=== PATIENT | female | born 1965 | race Caucasian/White ===

== ENCOUNTER → 2018-01-09 | Outpatient (CLI) | payer OTHER | END | disposition home or self-care (01) | LOC: LABWHC1 10:25 | PROVIDERS: ATTEND Family Medicine | DX: R19.7 Diarrhea, unspecified (principal) | CPT/HCPCS: 87045; 87046; 87324; 87328; 87329 ==

== ENCOUNTER → 2018-02-07 | Outpatient (CLI) | payer OTHER ==
--- NOTE | 2018-02-11 12:13 | MM ---
Reason for exam: screening (asymptomatic). Last mammogram was performed 2 years and 10 months ago. History: Patient is postmenopausal. Pre-pectoral saline implants in both breasts, 2000. MG Screening Mammo Implant/CAD Bilateral CC, MLO, and ID view(s) were taken. Prior study comparison: April 07, 2015, bilateral MG diag mamm implants JEN w CAD. There are scattered fibroglandular densities. Bilateral prepectoral saline implants are present. There is a new left lower inner quadrant focal asymmetry. ASSESSMENT: Incomplete: need additional imaging evaluation, BI-RAD 0 RECOMMENDATION: Special view mammogram of the left breast.
== END | disposition home or self-care (01) ==
LOC: RADMAMWWP 09:43
PROVIDERS: ATTEND Family Medicine
DX: Z12.31 Encounter for screening mammogram for malignant neoplasm of breast (principal)
CPT/HCPCS: 77067

== ENCOUNTER → 2018-02-14 | Outpatient (CLI) | payer OTHER ==
--- NOTE | 2018-02-18 10:43 | MM ---
Reason for exam: additional evaluation requested from abnormal screening. Last mammogram was performed less than 1 month ago. History: Patient is postmenopausal. Pre-pectoral saline implants in both breasts, 2000. Physical Findings: Nurse did not find any significant physical abnormalities on exam. MG Work Up Sven W/Imp W/CAD L Spot compression CC, spot compression MLO, LM, and ID view(s) were taken of the left breast. Prior study comparison: February 07, 2018, bilateral MG screening mammo implant/CAD. April 07, 2015, bilateral MG diag mamm implants JEN w CAD. The breast tissue is heterogeneously dense. This may lower the sensitivity of mammography. There is a 3 mm mass that persist in the lower inner quadrant of the left breast approximately 3 cm from the nipple. These results were verbally communicated with the patient and result sheet given to the patient on 02/14/18. ASSESSMENT: Incomplete: need additional imaging evaluation, BI-RAD 0 RECOMMENDATION: Ultrasound of the left breast.
== END | disposition home or self-care (01) ==
LOC: RADMAMWWP 12:03
PROVIDERS: ATTEND Family Medicine
DX: R92.8 Other abnormal and inconclusive findings on diagnostic imaging of breast (principal)
CPT/HCPCS: 77066

== ENCOUNTER → 2018-02-28 | Day surgery (SDC) | payer OTHER ==
[2018-02-28 11:06] VITALS: PULSE 90; BMI 29.5
[2018-02-28 15:40] VITALS: BP 134/67; RESP 16; TEMP 98
--- NOTE | 2018-02-28 15:40 | USB ---
EXAMINATION TYPE: US biopsy breast VAD LT, MG diagnostic mammo LT wo CAD DATE OF EXAM: 02/28/2018 CLINICAL HISTORY: 53-year-old female with abnormal mammogram and ultrasound left breast R92.8 Abnormal Mammo. TECHNIQUE: Ultrasound guided core biopsy of the left breast. COMPARISON: 02/14/2018 FINDINGS: The procedure of ultrasound guided core biopsy was explained to the patient. Benefits, alternatives, and risks were discussed. An informed consent was then obtained. The patient was placed in supine positioning for imaging and for the procedure. The overlying skin was prepped and draped in usual sterile fashion. Lidocaine buffered with bicarbonate was used as anesthetic into the skin and subcutaneous tissue up to area of concern in the 6:00 left breast. Here was taken given the patient's underlying rest implant. Anesthetic injection was used to lift the lesion away from the implant. Under ultrasound guidance, 13-gauge vacuum-assisted mammotome Elite biopsy gun device was used to obtain 3 core samples. The entire lesion appeared to be sampled with the multiple specimens. Following this, a coil clip was left in lesion. The patient tolerated the procedure well without any immediate complication. The patient was kept in the radiology department for short stay after the procedure and then discharged home in stable condition. Postprocedure mammogram shows clip at the site of mammographic abnormality. IMPRESSION: Successful, uncomplicated ultrasound guided core biopsy of area of concern in the 6:00 left breast which corresponds to the mammographic abnormality, full pathology results to follow. 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 See Surgical Pathology Cancer Case Summary. Recommendation Surgical consult of the left breast. (appropriate therapy and follow up) KUMAR
== END ==
LOC: RADUSWWP 10:20
PROVIDERS: ATTEND Family Medicine
DX: D05.12 Intraductal carcinoma in situ of left breast (principal); Z88.0 Allergy status to penicillin
CPT/HCPCS: 77065; 19083; A4648; 88305

== ENCOUNTER → 2019-02-09 | Outpatient (CLI) | payer OTHER ==
--- NOTE | 2019-02-09 11:09 | MM ---
Reason for exam: additional evaluation requested from prior study. Last mammogram was performed 11 months ago. History: Patient is postmenopausal and has history of breast cancer at age 53. Malignant US biopsy breast VAD LT of the left breast, February 28, 2018. Pre-pectoral saline implants in both breasts, 1999. Lumpectomy. Radiation therapy. Taking antineoplastic beginning at age 53. Physical Findings: Nurse did not find any significant physical abnormalities on exam. MG Diag Mamm Implants JEN w CAD Bilateral CC and MLO view(s) were taken. Prior study comparison: February 28, 2018, left breast MG diagnostic mammo LT wo CAD. February 14, 2018, left breast MG work up koki w/imp w/CAD L. There are scattered fibroglandular densities. Bilateral implants are intact. No significant new findings when compared with previous films. These results were verbally communicated with the patient and result sheet given to the patient on 02/09/19. ASSESSMENT: Benign, BI-RAD 2 RECOMMENDATION: Routine screening mammogram of both breasts in 1 year.
== END | disposition home or self-care (01) ==
LOC: RADMAMWWP 09:13
PROVIDERS: ATTEND Radiology Radiation Oncology
DX: C50.512 Malignant neoplasm of lower-outer quadrant of left female breast (principal); Z17.0 Estrogen receptor positive status [ER+]; Z92.3 Personal history of irradiation
CPT/HCPCS: 77066

== ENCOUNTER 2019-07-14 08:01 | Observation (INO) | payer OTHER ==
[2019-07-14] MEDS ORDERED: MORPHINE SULFATE 2 MG/ML SYRINGE IM STA (08:29)
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
[2019-07-14] MEDS ORDERED: HYDROmorphone 0.5 MG/0.5 ML SYRINGE IVP STA (10:34)
[2019-07-14] MEDS ORDERED: LORazepam 2 MG/ML INJ IV STA (10:35)
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
--- NOTE | 2019-07-14 13:17 | XR ---
EXAMINATION TYPE: XR shoulder complete RT DATE OF EXAM: 07/14/2019 CLINICAL HISTORY: pain TECHNIQUE: Three views of the right shoulder are obtained. COMPARISON: None FINDINGS: There is no acute fracture evident. The acromioclavicular and glenohumeral joint spaces a ppear mildly narrowed. Mild elevation distal clavicle relative to the acromion may reflect a degree of AC joint separation. Correlate clinically. The visualized ribs are intact and unremarkable. IMPRESSION: 1. There is no acute fracture.Mild elevation distal clavicle relative to the acromion may reflect a d egree of AC joint separation. Correlate clinically. ICD 10 NO FRACTURE, INITIAL EVALUATION
[2019-07-14] MEDS ORDERED: ONDANSETRON 4 MG/2 ML VIAL IVP PRN (13:24)
[2019-07-14] MEDS ORDERED: NALOXONE 0.4 MG/ML 1 ML VIAL IV PRN (13:24)
[2019-07-14] MEDS ORDERED: hydrALAZINE HCL 20 MG/ML 1 ML VIAL IVP STA (13:26)
[2019-07-14] MEDS: HYDROmorphone 0.5 MG/0.5 ML SYRINGE IVP PRN ×3 (13:36→19:53)
[2019-07-14] MEDS: SODIUM CHLORIDE 0.9% 1,000 ML IV SCH (13:38)
[2019-07-14] MEDS ORDERED: DEXAMETHASONE SOD PHOSPHATE 4 MG/ML 1 ML VIAL IV STA (13:55)
[2019-07-14] MEDS ORDERED: ACETAMINOPHEN TAB 325 MG TAB PO PRN (18:03)
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
[2019-07-14] MEDS: methylPREDNISolone SOD SUCCI 125 MG/2 ML VIAL IV SCH (19:17)
[2019-07-14] MEDS: HYDROcodone/APAP 5-325MG 1 EACH TAB PO PRN (20:49)
[2019-07-15] MEDS: methylPREDNISolone SOD SUCCI 125 MG/2 ML VIAL IV SCH ×2 (01:02→08:45)
[2019-07-15 01:41] VITALS: TEMP 98.2
[2019-07-15] MEDS: HYDROmorphone 0.5 MG/0.5 ML SYRINGE IVP PRN ×2 (04:33→08:46)
[2019-07-15] MEDS: SODIUM CHLORIDE 0.9% 1,000 ML IV SCH (04:39)
[2019-07-15] MEDS: HYDROcodone/APAP 5-325MG 1 EACH TAB PO PRN (05:22)
--- NOTE | 2019-07-15 08:26 | XR ---
Right knee HISTORY: Trauma and pain 3 views of the right knee Bone mineralization, joint spaces and alignment are maintained. Small ossific densities are noted on the frontal view at the level of the intercondylar notch and on the oblique view at the level of the proximal tibia medially which appear well-corticated and are felt likely to be chronic. Spurring is p resent at the patellofemoral joint, medial compartment. Minimal suprapatellar increased density sugge sts small effusion. IMPRESSION: Osteoarthritis. Additional findings above, difficult to exclude small loose bodies.
[2019-07-15 09:07] VITALS: BP 133/78; PULSE 101; RESP 16
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
== END 2019-07-15 12:35 | disposition home or self-care (01) ==
LOC: EC 08:01 → 4SSUR 13:47
PROVIDERS: ADMIT Orthopaedic Surgery Orthopaedic Surgery of the Spine; ATTEND Orthopaedic Surgery Orthopaedic Surgery of the Spine
DX: M50.121 Cervical disc disorder at C4-C5 level with radiculopathy (principal); M48.02 Spinal stenosis, cervical region; S14.129A Central cord syndrome at unspecified level of cervical spinal cord, initial encounter; V43.52XA Car driver injured in collision with other type car in traffic accident, initial encounter; Y92.410 Unspecified street and highway as the place of occurrence of the external cause; M25.511 Pain in right shoulder; M19.041 Primary osteoarthritis, right hand; M17.11 Unilateral primary osteoarthritis, right knee; M85.80 Other specified disorders of bone density and structure, unspecified site; F17.200 Nicotine dependence, unspecified, uncomplicated; F32.9 Major depressive disorder, single episode, unspecified; I10 Essential (primary) hypertension; M81.0 Age-related osteoporosis without current pathological fracture; Z80.8 Family history of malignant neoplasm of other organs or systems; Z79.1 Long term (current) use of non-steroidal anti-inflammatories (NSAID); Z79.891 Long term (current) use of opiate analgesic; Z79.899 Other long term (current) drug therapy; Z88.0 Allergy status to penicillin
CPT/HCPCS: 96376 ×3; 96374; 96375; 99285; 73030; 73130; 73562; 72125; 70450; 72141; G0378 ×2; J2060; J1100; J2930 ×2; J2270; J1170 ×2

== ENCOUNTER → 2020-05-06 | Outpatient (CLI) | payer OTHER ==
--- NOTE | 2020-05-06 11:36 | MM ---
Reason for exam: additional evaluation requested from prior study. Last mammogram was performed 1 year and 3 months ago. History: Patient is postmenopausal and has history of breast cancer at age 53. Malignant US biopsy breast VAD LT of the left breast, February 28, 2018. Pre-pectoral saline implants in both breasts, 1999. Lumpectomy. Radiation therapy. Taking antineoplastic beginning at age 53. Physical Findings: Nurse did not find any significant physical abnormalities on exam. MG 3D Diag Mammo Imp W/Cad JEN Bilateral CC, MLO, and ID view(s) were taken. Prior study comparison: February 09, 2019, bilateral MG diag mamm implants JEN w CAD. February 28, 2018, left breast MG diagnostic mammo LT wo CAD. There are scattered fibroglandular densities. Bilateral breast prothesis. No significant new findings when compared with previous films. These results were verbally communicated with the patient and result sheet given to the patient on 05/06/20. ASSESSMENT: Benign, BI-RAD 2 RECOMMENDATION: Follow-up diagnostic mammogram of both breasts in 1 year. Manage on a clinical basis with regard to firm implant.
== END | disposition home or self-care (01) ==
LOC: RADMAMWWP 10:06
PROVIDERS: ATTEND Radiology Radiation Oncology
DX: C50.512 Malignant neoplasm of lower-outer quadrant of left female breast (principal); Z92.3 Personal history of irradiation; Z17.0 Estrogen receptor positive status [ER+]
CPT/HCPCS: 77066; G0279; 77062

== ENCOUNTER → 2022-10-24 | Outpatient (CLI) | payer MEDICARE, OTHER ==
--- NOTE | 2022-10-24 09:14 | US ---
EXAMINATION TYPE: US abdomen limited DATE OF EXAM: 10/24/2022 COMPARISON: NONE CLINICAL INDICATION: Female, 57 years old with history of R10.9 unsp abdominal pain; TECHNIQUE: Multiple sonographic images of the right upper quadrant are obtained. FINDINGS: EXAM MEASUREMENTS: Liver Length: 18.2 cm Gallbladder Wall: 0.13 cm CBD: 0.65 cm Right Kidney: 10.3 x 4.4 x 4.4 cm DIRECTOR OF SCOUT WORK NOTES:some exam limitations due to overlying bowel gas Pancreas: Obscured by bowel gas Liver: upper limits in size, attenuating Gallbladder: wnl. No gallbladder wall thickening or pericholecystic fluid. Evidence for sonographic Martinez's sign: some tenderness of this area CBD: upper limits in size Right Kidney: wnl IMPRESSION: No evidence for acute abdominal process. Calculating Machine Mechanic reported mild tenderness in the right upper quad rant, this is nonspecific correlate with HIDA scan if this concern for acute cholecystitis.
== END | disposition home or self-care (01) ==
LOC: RADUSWWP 07:45
PROVIDERS: ATTEND Family Medicine
DX: R10.9 Unspecified abdominal pain (principal)
CPT/HCPCS: 76705

== ENCOUNTER → 2022-11-09 | Outpatient (CLI) | payer MEDICARE, OTHER | END | disposition home or self-care (01) | LOC: LABPAT 09:39 | PROVIDERS: ATTEND Orthopaedic Surgery Hand Surgery | DX: Z53.9 Procedure and treatment not carried out, unspecified reason (principal) ==

== ENCOUNTER → 2022-11-09 | Outpatient (CLI) | payer MEDICARE, OTHER ==
[2022-11-09 14:23] LABS: Anion Gap 12.1 mmol/L (10.00-18.00); Carbon Dioxide 25.8 mmol/L (20.0-27.5); Potassium 4.1 mmol/L (3.5-5.5)
[2022-11-09 15:28] LABS: Basophils # (A) 0.02 X 10*3/uL (0.00-0.10); Basophils % (A) 0.3 %; Eosinophils # (A) 0.25 X 10*3/uL (0.04-0.35); Eosinophils % (A) 4.3 %; HCT 37.6 % (37.2-46.3); HGB 12.5 g/dL (12.0-15.0); Immature Grans, Automated 0.3 %; Lymphocytes # (A) 1.84 X 10*3/uL (0.90-5.00); Lymphocytes % (A) 31.6 %; MCH 30.6 pg (27.0-32.0); MCHC 33.2 g/dL (32.0-37.0); MCV 92.2 fL (80.0-97.0); Mean Platelet Volume 9.5 fL (9.5-12.2); Monocytes # (A) 0.44 X 10*3/uL (0.20-1.00); Monocytes % (A) 7.6 %; NRBC Per 100 WBC 0 /100 WBCS (0.0-0.0); Neutrophils # (A) 3.25 X 10*3/uL (1.80-7.70); Neutrophils % (A) 55.9 %; Platelet Count 342 X 10*3/uL (140-440); RBC 4.08 X 10*6/uL (4.10-5.20); RDW 12.8 % (11.5-14.5); WBC 5.82 X 10*3/uL (4.50-10.00)
== END | disposition home or self-care (01) ==
LOC: LABWHC1 09:43
PROVIDERS: ATTEND Nurse Practitioner Family
DX: R10.11 Right upper quadrant pain (principal); I44.0 Atrioventricular block, first degree
CPT/HCPCS: 36415; 80051; 85025; 93005

== ENCOUNTER 2022-11-14 07:42 | Day surgery (SDC) | payer MEDICARE, OTHER ==
--- NOTE | 2022-11-13 09:16 | P.HPOR ---
History of Present Illness H&P Date: 11/13/22 Subjective: This is a 57 year old female that presents today for initial evaluation regarding a several month history of progressively worsening right hand pain and a year-long history of worsening right hand numbness in the thumb, index and middle fingers. Patient noticed that she has thumb pain with pinch and grasp located at the base of the thumb. She is trying to wear braces at work and at nighttime with little relief of her symptoms. 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 She denies any injury or inciting event. Physical Examination: RUE: AIN/PIN/Radial/Ulnar/Median motor intact. Radial/Ulnar/Median SILT. 2+/4 Radial/Ulnar pulses palpated. 5/5 APB, 5/5 FDI. Negative Finkelsteins, positive CMC grind, positive Durkan's compression. Imaging: X-Rays of the right hand 3 view taken in the office today demonstrate advanced degenerative changes of the thumb CMC joint. Impression: 1.) Right carpal tunnel syndrome 2.) Right thumb CMC arthritis Plan: Diagnosis and treatment options were discussed with the patient. at this point time. She thinks she is now at the point where she needs surgery for the thumb, which I agree with. She would like to try conservative measures with a thumb intra-articular steroid injection at the CMC joint. She would also like to pursue a right endoscopic versus open carpal tunnel syndrome since she has failed conservative treatment for her carpal tunnel syndrome symptoms. She would like to do the steroid injection into the thumb CMC joint while asleep for the carpal tunnel release. Risks and benefits of surgery including bleeding, infection, damage to surrounding tissue, need for further surgery, possible need to convert to open procedure, residual numbness were discussed and the patient wished to go forward with surgery. The patient was agreeable with this plan. -Sheldon Jones DO Orthopedic Hand/Upper Extremity Surgeon Past Medical History Past Medical History: Hypertension Additional Past Medical History / Comment(s): multiple joint issues, CARPAL TUNNEL History of Any Multi-Drug Resistant Organisms: None Reported Past Surgical History: Breast Surgery, Tubal Ligation Additional Past Surgical History / Comment(s): BILATERAL BREAST IMPLANTS, BREAST CANCER TO LEFT BREAST 2018- LUMPECTOMY AND LYMPH NODE REMOVAL.ex lap for possible ectopic but wasn't ectopid Past Anesthesia/Blood Transfusion Reactions: No Reported Reaction Smoking Status: Former smoker - Past Family History Mother Family Medical History: Cancer, Diabetes Mellitus Additional Family Medical History / Comment(s): UTERINE CA Sister(s) Family Medical History: Cancer Additional Family Medical History / Comment(s): HYSTERECTOMY Medications and Allergies Home Medications Medication Instructions Recorded Confirmed Type lisinopriL 40 mg PO DAILY 07/29/14 11/09/22 History Ibuprofen [Motrin] 800 mg PO BID PRN 07/30/14 11/09/22 History ARIPiprazole [Abilify] 2 mg PO DAILY 07/14/19 11/09/22 History Atorvastatin Calcium [Lipitor] 80 mg PO HS 07/14/19 11/09/22 History Hydrocodone/Acetaminophen [[place] 1 tab PO BID PRN 07/14/19 11/09/22 History 10-325] Omeprazole [PriLOSEC] 40 mg PO DAILY 07/14/19 11/09/22 History predniSONE [Deltasone] 20 mg PO DAILY #24 tab 07/14/19 11/09/22 Rx ALPRAZolam [Xanax] 0.25 mg PO DAILY PRN 11/09/22 11/09/22 History Allergies Allergy/AdvReac Type Severity Reaction Status Date / Time Penicillins Allergy Intermediate Rash/Hives, Verified 11/09/22 15:07 swelling Physical Examination Osteopathic Statement: *. No significant issues noted on an osteopathic structural exam other than those noted in the History and Physical/Consult.
[2022-11-14] MEDS ORDERED: HYDROmorphone 0.5 MG/0.5 ML SYRINGE IVP PRN (08:22)
[2022-11-14] MEDS ORDERED: LIDOCAINE 1% (10MG/ML) FOR IV START INTRADERMA PRN (08:22)
[2022-11-14] MEDS ORDERED: ONDANSETRON 4 MG/2 ML VIAL IVP ONE (08:22)
[2022-11-14] MEDS ORDERED: LACTATED RINGERS 1,000 ML IV SCH (08:22)
[2022-11-14 08:33] VITALS: TEMP 98
[2022-11-14 08:36] LABS: Glucose,Whole Blood 107 mg/dL (70-110)
--- NOTE | 2022-11-14 08:45 | P.OP ---
Date of Procedure: 11/14/22 Preoperative Diagnosis: 1.) Right carpal tunnel syndrome 2.) Right thumb CMC arthritis Postoperative Diagnosis: 1.) Right carpal tunnel syndrome 2.) Right thumb CMC arthritis Procedure(s) Performed: 1.) Right endoscopic carpal tunnel release 2.) Right thumb CMC steroid injection Anesthesia: MAC Surgeon: Sheldon Jones Facilities Maintenance Assistant #1: Kt Lopez Estimated Blood Loss (ml): 0 Pathology: none sent Condition: stable Disposition: PACU Description of Procedure: This is a 57 year old female who presents today for a right endoscopic carpal tunnel release after having failed conservative treatment in the past. Risks and benefits of surgery were discussed with the patient including bleeding, damage to surrounding tissue, infection, need to convert to open procedure, need for further surgery as well as risks of anesthesia including pulmonary embolism and even and the patient wished to proceed with surgical intervention. The patients was seen in the pre-operative area by myself. Consent and H&P were completed and updated. The correct extremity was marked in the pre-operative area by myself and all other questions were answered. Operative Narrative: The patient was brought to the operating room by the department of ane sthesia. They remained on the portable stretcher and a rolling hand table was brought to the side of the operative extremity. Pre-operative time out was performed indicating the correct patient, procedure and laterality. All in the room agreed. The patient was then drifted off to sleep by the department of anesthesia. MAC anesthesia was utilized and a 50:50 mixture of 1% Lidocaine and 0.5% bupivacaine was injected into the subcutaneous tissues of the palmar skin, 10ccs total. A nonsterile tourniquet was then applied to the operative extremity and the right upper extremity was then prepped and draped in normal sterile fashion. The operative extremity was the exsanguinated with an esmarch bandage and the tourniquet was inflated to 250mmHg. 15 blade scalpel was utilized to make a transverse incision on the palmar skin just ulnar to the palmaris longus tendon at the level of the distal wrist crease. Ragnell retractor was then placed radially and blunt dissection was performed to reveal the distal forearm fascia. This was lifted with fine Aaron pick ups and Littler tenotomy scissors were then used to open the forearm fascia transversely and a double skin hook was then placed. Hamate finder was placed into the carpal tunnel and then sequential sized dilators were inserted followed by the synovial elevator to separate the flexor tenosynovium from the undersurface of the transverse carpal ligament and a washboard texture was felt. The MicroAire endoscopic carpal tunnel release system gun was the then inserted into the carpal tunnel hugging the deep portion of the transverse carpal ligament in line with the base of the ring finger. Transverse fibers of the ligament were directly visualized. Pressure was applied on the palm to reveal the distal extent of the transverse carpal ligament. The blade was then deployed and the distal half of the transverse carpal ligament was released. The scope was then brought distal again and remaining transverse fibers were incised with the blade. The proximal half of the transverse carpal ligament was then divided and again the scope was advanced distal and remaining transverse fibers were incised with the blade. The radial and ulnar leaflets were directly visualized and mobile consistent with complete release. Tenotomy scissors were then utilized to release the remaining distal forearm fascia under direct visualization taking care to preserve the palmar cutaneous branch of the median nerve. Skin closure was performed with interrupted 4-0 Monocryl suture followed by Mastisol and steri strips. Sterile dressing was applied consisting of adaptic, 4x4s, Webril, and an naida bandage. Tourniquet was let down and the hand immediately was well perfused. The patient was then woken by the department of anesthesia and transferred to PACU in stable condition. Kt SMITH was present for the case in its entirety and assisted in major portions of the case and protection of vital neurovascular structures. Sheldon Jones D.O. Orthopedic Hand/Upper Extremity Surgeon
[2022-11-14] MEDS ORDERED: PROPOFOL 10 MG/ML 20 ML VIAL IV ONE (08:51)
[2022-11-14] MEDS ORDERED: fentaNYL (PF) 50 MCG/ML 2 ML AMP ONE (08:51)
[2022-11-14] MEDS ORDERED: MIDAZOLAM 2 MG/2 ML VIAL ONE (08:51)
[2022-11-14] MEDS ORDERED: BUPIVACAINE (PF) 0.5% 30 ML VIAL SQ ONE (08:59)
[2022-11-14] MEDS ORDERED: methylPREDNISolone ACETATE 40 MG/ML 1 ML VIAL MISCELLANE ONE (08:59)
[2022-11-14] MEDS ORDERED: LIDOCAINE 2% (PF) 20 MG/ML 10 ML AMP SQ ONE (08:59)
[2022-11-14 09:32] VITALS: RESP 16
[2022-11-14 09:39] VITALS: BP 107/44; PULSE 62
== END 2022-11-14 10:09 | disposition home or self-care (01) ==
LOC: OR 07:42
PROVIDERS: ATTEND Orthopaedic Surgery Hand Surgery
DX: G56.01 Carpal tunnel syndrome, right upper limb (principal); M18.11 Unilateral primary osteoarthritis of first carpometacarpal joint, right hand; I10 Essential (primary) hypertension; E78.5 Hyperlipidemia, unspecified; F41.9 Anxiety disorder, unspecified; F32.A Depression, unspecified; Z87.891 Personal history of nicotine dependence; Z85.3 Personal history of malignant neoplasm of breast; Z79.1 Long term (current) use of non-steroidal anti-inflammatories (NSAID); Z79.899 Other long term (current) drug therapy; Z79.52 Long term (current) use of systemic steroids; Z88.0 Allergy status to penicillin
CPT/HCPCS: 29848; 20600; 81025; J2250; J1030; J2001; J2405; J3010; J2704

== ENCOUNTER → 2022-11-16 | Outpatient (CLI) | payer MEDICARE, OTHER ==
--- NOTE | 2022-11-16 09:34 | NM ---
Nuclear medicine hepatobiliary scan. HISTORY: Pain. DOSAGE: The patient received 8 0z Ensure plus and 5.0 mCi of Technetium 99m Choletec. FINDINGS: There is normal hepatic extraction. The gallbladder is seen by 40 minutes. There is bilia ry to bowel clearance by 20 minutes. Ejection fraction is 79%. IMPRESSION: 1. Normal hepatobiliary exam
== END | disposition home or self-care (01) ==
LOC: RADNMMAIN 06:41
PROVIDERS: ATTEND Family Medicine
DX: R10.11 Right upper quadrant pain (principal)
CPT/HCPCS: 78226; A9537

== ENCOUNTER → 2022-11-19 | Outpatient (CLI) | payer MEDICARE, OTHER ==
--- NOTE | 2022-11-19 11:55 | CT ---
EXAMINATION TYPE: CT abdomen pelvis w con DATE OF EXAM: 11/19/2022 COMPARISON: None HISTORY: Increased pancreatic lipase. Right sided abdominal pain. CT DLP: 863.4 mGycm CONTRAST: CT scan of the abdomen and pelvis is performed with Oral Contrast and with IV Contrast, patient injec reena with 100ml mL of Isovue 300. FINDINGS: LUNG BASES-: No visible nodule. No infiltrate. LIVER/GB: No calcified gallstones. Hypoattenuating lesion posterior segment right hepatic lobe near the hepatic dome measuring 2.4 x 1.2 cm and demonstrating average Hounsfield unit measurement of 49. Therefore I cannot classify this lesion is a simple cyst. Further correlation with MRI is advised. N o additional lesions noted. Biliary tree is of normal caliber. PANCREAS: No inflammation. No distinct mass. SPLEEN: No splenic enlargement. No lesion seen. ADRENALS: No nodule. No thickening. KIDNEYS/BLADDER: No hydronephrosis. No nephrolithiasis. Simple cyst upper pole right kidney measuri ng approximately 1 cm. Parenchymal thinning lower pole left kidney. Urinary bladder grossly unremarka ble. BOWEL: Normal appendix. Normal bowel caliber. No inflammation. Wall thickening distal stomach/pylor us may reflect underlying inflammatory change. Correlate clinically and consider direct visualization if felt clinically indicated. GENITAL ORGANS: No gross abnormality. LYMPH NODES: No greater than 1cm abdominal or pelvic lymph nodes are appreciated. AORTA: No significant abnormality. OSSEOUS STRUCTURES: No significant abnormality is seen. OTHER: No significant additional abnormality is seen. IMPRESSION: 1. Wall thickening distal stomach/pylorus may reflect underlying inflammatory change. Correlate clini fede and consider direct visualization if felt clinically indicated. 2.Hypoattenuating lesion posterior segment right hepatic lobe near the hepatic dome measuring 2.4 x 1 .2 cm and demonstrating average Hounsfield unit measurement of 49. Therefore I cannot classify this l esion is a simple cyst. Further correlation with MRI is advised.
== END | disposition home or self-care (01) ==
LOC: RADCTMAIN 09:22
PROVIDERS: ATTEND Family Medicine
DX: K63.89 Other specified diseases of intestine (principal); K76.89 Other specified diseases of liver; R85.0 Abnormal level of enzymes in specimens from digestive organs and abdominal cavity
CPT/HCPCS: 74177; Q9967

== ENCOUNTER → 2022-12-10 | Outpatient (CLI) | payer MEDICARE, OTHER ==
[2022-12-10 15:31] LABS: Basophils # (A) 0.04 X 10*3/uL (0.00-0.10); Basophils % (A) 0.7 %; Eosinophils % (A) 4.9 %; HCT 38.5 % (37.2-46.3); HGB 12.5 d/dL (12.0-15.0); Lymphocytes # (A) 2.32 X 10*3/uL (0.90-5.00); Lymphocytes % (A) 37.7 %; MCH 30.3 pg (27.0-32.0); MCHC 32.5 d/dL (32.0-37.0); MCV 93.4 FL (80.0-97.0); Mean Platelet Volume 9.3 FL (9.5-12.2); Monocytes # (A) 0.39 X 10*3/uL (0.20-1.00); Monocytes % (A) 6.3 %; NRBC Per 100 WBC 0 X 10*3/uL (0.00-0.01); Neutrophils # (A) 3.08 X 10*3/uL (1.80-7.70); Neutrophils % (A) 50.1 %; Platelet Count 366 X 10*3/uL (140-440); RBC 4.12 X 10*6/uL (4.10-5.20); RDW 12.7 % (11.5-14.5); WBC 6.15 X 10*3/uL (4.50-10.00)
[2022-12-10 15:42] LABS: ALT 75 U/L (8-44); AST 37 U/L (13-35); Albumin 4.3 d/dL (3.8-4.9); Albumin/Globulin Ratio 2.05 Ratio (1.60-3.17); Alkaline Phosphatase 131 U/L (41-126); BUN/Creat Ratio 19.38 Ratio (12.00-20.00); Blood Urea Nitrogen 15.5 mg/dL (9.0-27.0); C Reactive Protein <0.30 mg/dL (0.00-0.80); Calcium 9.5 mg/dL (8.7-10.3); Carbon Dioxide 26.6 mmol/L (21.6-31.8); Chloride 108 mmol/L (96-109); Globulin 2.1 d/dL (1.6-3.3); Glucose 90 mg/dL (70-110); Potassium 4.3 mmol/L (3.5-5.5); Sodium 144 mmol/L (135-145); Total Bilirubin 0.3 mg/dL (0.3-1.2); Total Protein 6.4 d/dL (6.2-8.2)
[2022-12-10 16:00] LABS: Hepatitis B Surface Antigen Nonreactive; Hepatitis C IgG Antibody Nonreactive
[2022-12-10 17:55] LABS: Erythrocyte Sedimentation Rate 6 mm/Hr (0-30)
[2022-12-10 19:52] LABS: Gliadin AB IgG, Deaminated Negative (Negative); Gliadin AB IgG, Unit <0.4 U/mL
[2022-12-11 15:10] LABS: Gliadin AB IgA, Deaminated Negative (Negative); Gliadin AB IgA, Unit <0.5 U/mL
== END | disposition home or self-care (01) ==
LOC: LABWHC1 08:42
PROVIDERS: ATTEND Nurse Practitioner Family
DX: K52.9 Noninfective gastroenteritis and colitis, unspecified (principal); R10.11 Right upper quadrant pain
CPT/HCPCS: 36415; 80053; 83516; 85025; 85652; 86140; 86803; 87340

== ENCOUNTER → 2023-01-08 | Outpatient (CLI) | payer MEDICARE, OTHER ==
[2023-01-08 16:33] LABS: Basophils # (A) 0.01 X 10*3/uL (0.00-0.10); Basophils % (A) 0.2 %; Eosinophils # (A) 0.25 X 10*3/uL (0.04-0.35); Eosinophils % (A) 5.2 %; HCT 37.6 % (37.2-46.3); HGB 12.1 d/dL (12.0-15.0); Immature Grans, Automated 0 %; Lymphocytes # (A) 1.85 X 10*3/uL (0.90-5.00); Lymphocytes % (A) 38.8 %; MCH 30.3 pg (27.0-32.0); MCHC 32.2 d/dL (32.0-37.0); Mean Platelet Volume 9.9 FL (9.5-12.2); Monocytes # (A) 0.29 X 10*3/uL (0.20-1.00); Monocytes % (A) 6.1 %; NRBC Per 100 WBC 0 X 10*3/uL (0.00-0.01); Neutrophils # (A) 2.37 X 10*3/uL (1.80-7.70); Neutrophils % (A) 49.7 %; Platelet Count 343 X 10*3/uL (140-440); RDW 13.1 % (11.5-14.5); WBC 4.77 X 10*3/uL (4.50-10.00)
[2023-01-08 16:58] LABS: Ceruloplasmin 24.6 mg/dL (20.0-60.0)
[2023-01-08 17:03] LABS: % Iron Saturation 21.68 (12.00-45.00); Blood Urea Nitrogen 9.2 mg/dL (9.0-27.0); Chloride 108 mmol/L (96-109); Glucose 97 mg/dL (70-110); Iron 75 UG/DL (50-170); Potassium 4.1 mmol/L (3.5-5.5); Sodium 144 mmol/L (135-145); Total Iron Binding Capacity 346 UG/DL (228-460)
[2023-01-08 17:04] LABS: ALT 48 U/L (8-44); AST 27 U/L (13-35); Albumin 4.2 d/dL (3.8-4.9); Albumin/Globulin Ratio 1.91 Ratio (1.60-3.17); Alkaline Phosphatase 117 U/L (41-126); Calcium 9.5 mg/dL (8.7-10.3); Carbon Dioxide 25.3 mmol/L (21.6-31.8); Globulin 2.2 d/dL (1.6-3.3); Total Bilirubin 0.4 mg/dL (0.3-1.2); Total Protein 6.4 d/dL (6.2-8.2)
[2023-01-08 17:20] LABS: Albumin 4.3 d/dL (3.8-4.9); Protein, Total 6.6 d/dL (6.2-8.2)
[2023-01-09 17:17] LABS: Gamma Globulin 0.7 d/dL (0.70-1.50)
== END | disposition home or self-care (01) ==
LOC: LABWHC1 10:34
PROVIDERS: ATTEND Nurse Practitioner Family
DX: R74.8 Abnormal levels of other serum enzymes (principal)
CPT/HCPCS: 36415; 80053; 82103; 82390; 82728; 83516; 83540; 83550; 84165; 85025; 86038

== ENCOUNTER → 2024-01-08 | Outpatient (CLI) | payer MEDICARE, OTHER ==
--- NOTE | 2024-01-08 08:45 | US ---
EXAMINATION TYPE: US abdomen limited DATE OF EXAM: 01/08/2024 COMPARISON: CT 11/19/2022 CLINICAL INDICATION: Female, 58 years old with history of R19.00 INTRA AB SWELLING MASS; Lump x few m onths; Patient denies any other signs or symptoms at this time; Hx Breast cancer about 5 years ago TECHNIQUE: Grayscale imaging the area of concern FINDINGS: Few Spiculated, ill defined, shadowing area seen at patients AOC, Largest = 1.3 x 1.2 x 1.3 cm IMPRESSION: Nonspecific ill-defined tissue in the area of palpable abnormality. Consider CT imaging with palpable marker placement for correlation.
--- NOTE | 2024-01-16 21:14 | MM ---
Reason for Exam: Screening (asymptomatic). Last mammogram was performed 1 year(s) and 4 month(s) ago. Patient History: Menarche at age 10. First Full-Term at age 16. Postmenopausal. Patient has history of breast feeding. Breast cancer, left, age 53. Lumpectomy. 02/28/2018, Malignant Core Biopsy on the left side. Radiation Therapy. 1999, Bilateral Implants. Prior Study Comparison: 02/09/2019 Bilateral Diagnostic Mammogram, [facility]. 05/06/2020 Bilateral Diagnostic Mammogram, [facility]. 09/07/2022 Bilateral MG 3D screen mammo imp/cad., [facility]. Tissue Density: There are scattered areas of fibroglandular density. Findings: Analyzed By CAD. Bilateral prepectoral saline implants. There is no suspicious group of microcalcifications or new suspicious mass in either breast. Overall Assessment: Benign, BI-RAD 2 Management: Screening Mammogram of both breasts in 1 year. . Patient should continue monthly self-breast exams. A clinical breast exam by your physician is recommended on an annual basis. This exam should not preclude additional follow-up of suspicious palpable abnormalities. Electronically signed and approved by: Carlo Galindo M.D. Radiologist
== END | disposition home or self-care (01) ==
LOC: RADUSWWP 06:53
PROVIDERS: ATTEND Family Medicine
DX: Z12.31 Encounter for screening mammogram for malignant neoplasm of breast (principal); R19.00 Intra-abdominal and pelvic swelling, mass and lump, unspecified site; R92.323 Mammographic fibroglandular density, bilateral breasts; Z78.0 Asymptomatic menopausal state
CPT/HCPCS: 76705; 77063; 77067

== ENCOUNTER → 2024-07-31 | Outpatient (CLI) | payer MEDICARE, OTHER ==
--- NOTE | 2024-07-31 19:24 | CT ---
EXAMINATION TYPE: CT abdomen pelvis w con DATE OF EXAM: 07/31/2024 7:02 PM COMPARISON: 11/19/2022 CLINICAL INDICATION: Female, 59 years old with history of R19.00 INTRA-ABD AND PELVIC SWELLING, MASS AND LUM; Pt noticed a lump just below ribs on left side of abdomen 6 months ago. TECHNIQUE: Axial CT abdomen pelvis w con;Sagittal and coronal reformats were created on a separate w orkstation. Contrast used:100ml mL of Isovue 300 with IV Contrast, (none if empty) Oral contrast used: with Oral Contrast (none if empty) CT DLP: 781 mGycm, Automated exposure control for dose reduction was used. FINDINGS: LOWER CHEST: Unremarkable ABDOMEN LIVER: Unremarkable GALLBLADDER AND BILE DUCTS: Unremarkable. PANCREAS: Unremarkable. SPLEEN: Unremarkable. ADRENAL GLANDS: Unremarkable. KIDNEYS AND URETERS: No evidence of hydronephrosis or renal calculus. The ureters are unremarkable. Right renal cortical probable cyst. PELVIS BLADDER: No evidence for wall thickening or mass given limitations of exam. REPRODUCTIVE: Unremarkable. ABDOMEN & PELVIS STOMACH AND BOWEL: No evidence of bowel obstruction. Scattered colonic diverticula. Appendix is lavon l. PERITONEUM/RETROPERITONEUM: No evidence of pneumoperitoneum or free fluid. VASCULATURE: No evidence of aortic aneurysm. MUSCULOSKELETAL: No acute osseous abnormalities. Moderate disc degeneration changes are present throu ghout the thoracolumbar spine. Sclerotic bone island in the right iliac crest measuring 1270 Hounsfie ld units. Mild scoliosis changes to the spine demonstrate scoliosis apex L3. LYMPH NODES: No gross evidence for lymphadenopathy. SOFT TISSUE/ABDOMINAL WALL: Subcutaneous masses. There is mild streaky edema in the left anterior abd omen. No finding below the ribs to correlate with patient's symptoms. IMPRESSION: 1. No subcutaneous masses definitively visualized. No palpable marker placed. Consider ultrasound a variant of concern. 2. Right iliac crest bone island. 3. Few scattered colonic diverticula. 4. Moderate degeneration changes spine with scoliosis. 5. Simple appearing right renal probable cyst. [facility], , 07/31/2024 7:22 PM
== END | disposition home or self-care (01) ==
LOC: RADCTMAIN 16:59
PROVIDERS: ATTEND Family Medicine
DX: R19.00 Intra-abdominal and pelvic swelling, mass and lump, unspecified site (principal); K57.30 Diverticulosis of large intestine without perforation or abscess without bleeding; M41.9 Scoliosis, unspecified
CPT/HCPCS: 74177; Q9967